=== PATIENT | male | born 1980 | race Caucasian/White ===

== ENCOUNTER 2019-06-09 07:25 | Emergency (ER) | payer SELFPAY ==
[2019-06-09 07:46] VITALS: BP 155/101
[2019-06-09] MEDS ORDERED: Tetan/Diph/Pertus SYR(Tdap)* 0.5 ML SYR(BOOSTRIX) use SYR contains LATEX IM ONE (07:56)
[2019-06-09] MEDS ORDERED: Cephalexin CAP* 500 MG PO ONE (07:56)
--- NOTE | 2019-06-09 08:04 | UC ---
Hand/Wrist HPI - HPI Summary HPI Summary: 38-year-old male comes in with chief complaint of left hand injury. Yesterday at work patient was using a drill with a Zaragoza head screwdriver on its when he accidentally punctured through his left glove and went into his hand and the flesh between the thumb and second finger. It did bleed. He does not believe it was a very deep puncture. Since then the areas become red and the area feels tight. No streaking of the redness up the arm. Patient is not sure when his last tetanus was. Patient does not believe there is any foreign body in the wound. - History Of Current Complaint Chief Complaint: Dharmesh Stated Complaint: HAND INJURY Time Seen by Provider: 06/09/19 07:49 Pain Intensity: 7 - Allergies/Home Medications Allergies/Adverse Reactions: Allergies Allergy/AdvReac Type Severity Reaction Status Date / Time No Known Allergies Allergy Verified 06/09/19 07:46 Home Medications: Home Medications Cephalexin CAP* [Keflex CAP*] 500 mg PO QID #40 cap 06/09/19 [Rx] Ibuprofen [Advil] 600 mg PO ONCE PRN 06/09/19 [History Confirmed 06/09/19] PMH/Surg Hx/FS Hx/Imm Hx Previously Healthy: Yes - Surgical History Surgical History: Yes Surgery Procedure, Year, and Place: as young child but unsure, finger surgery. hand surgery left - Family History Known Family History: Positive: Non-Contributory - Social History Alcohol Use: Daily Substance Use Type: None Smoking Status (MU): Light Every Day Tobacco Smoker Amount Used/How Often: 3-4 cig/day Household Exposure Type: Cigarettes - Immunization History Most Recent Tetanus Shot: 2013 Review of Systems All Other Systems Reviewed And Are Negative: Yes Constitutional: Positive: Negative Skin: Positive: Other - SEE HPI Eyes: Positive: Negative ENT: Positive: Negative Respiratory: Positive: Negative Cardiovascular: Positive: Negative Gastrointestinal: Positive: Negative Motor: Positive: Negative Neurovascular: Positive: Negative Musculoskeletal: Positive: Other: - SEE HPI Neurological/Mental Status: Positive: Negative Psychological: Positive: Negative Is Patient Immunocompromised?: No Physical Exam Triage Information Reviewed: Yes Appearance: Well-Appearing, No Pain Distress, Well-Nourished Vital Signs: Initial Vital Signs Temp 97.8 F 06/09/19 07:41 Pulse 83 06/09/19 07:41 Resp 18 06/09/19 07:41 BP 155/101 06/09/19 07:41 Pulse Ox 98 06/09/19 07:41 Vital Signs Reviewed: Yes Eye Exam: Normal Eyes: Positive: Conjunctiva Clear Neck: Positive: Supple Respiratory: Positive: No respiratory distress Musculoskeletal: Positive: Other: - On the left hand in the area between the thumb and second digits there is erythema and some swelling. Fingers and do have full range of motion however patient reports it feels tight. No change in strength. Neurological: Positive: Alert Skin: Positive: Other - There is a puncture wound in the flesh in the left hand between the thumb and second digit. The area is erythematous. The erythema does not spread all the way to the wrist. There is no tenderness to palpation in the wrist wrists is full range of motion. There is normal capillary refill normal sensation. No streaking. Hand/Wrist Course/Dx - Course Course Of Treatment: Patient was given T dap here in clinic. Also started on Keflex 500 mg by mouth 4 times a day. Patient reports the puncture wound was shallow and given location at this time I'm not concerned about any bony involvement and patient denied the concern of any foreign body from this Zaragoza head screwdriver puncture wound so therefore at this time I did not get an x-ray. Patient is to follow-up with orthopedic hands today or tomorrow. In the past the patient has had to be on IV antibiotics for hand infection and I let him know that if anything got worse he needs to be seen in the emergency department. - Differential Dx/Diagnosis Provider Diagnosis: Cellulitis of left hand, Puncture wound of left hand Discharge ED - Sign-Out/Discharge Documenting (check all that apply): Patient Departure All imaging exams completed and their final reports reviewed: No Studies - Discharge Plan Condition: Stable Disposition: HOME Prescriptions: Cephalexin CAP* [Keflex CAP*] 500 mg PO QID #40 cap Patient Education Materials: Puncture Wound (ED), Cellulitis (ED) Referrals: Juan Pablo Isidro MD [Primary Care Provider] - Sarah Aldridge MD [Medical Doctor] - Rubén Tinajero MD [Medical Doctor] - Additional Instructions: FOLLOW UP WITH THE ORTHOPEDIC HAND SPECIALIST TODAY OR TOMORROW. GO TO THE EMERGENCY DEPARTMENT IF WORSE; SPREAD OF INFECTION, FEVER, YOU FEEL ILL, PAIN OR ANY QUESTIONS OR CONCERNS. - Billing Disposition and Condition Condition: STABLE Disposition: Home
== END 2019-06-09 08:48 | disposition home or self-care (01) ==
LOC: UCEAST 07:25
DX: L03.114 Cellulitis of left upper limb (principal); S61.432A Puncture wound without foreign body of left hand, initial encounter; W26.8XXA Contact with other sharp object(s), not elsewhere classified, initial encounter; Y92.9 Unspecified place or not applicable; Y99.0 Civilian activity done for income or pay; F17.210 Nicotine dependence, cigarettes, uncomplicated
CPT/HCPCS: 90471; 90715; 99212; A9270-GY; G0463